=== PATIENT | female | born 1970 | race Two or more races ===

== ENCOUNTER 2017-01-19 22:48 | Emergency (ER) | payer OTHER ==
--- NOTE | 2017-02-05 16:41 | ER ---
ADMIT: 01/19/2017 RM/LOC: ER [facility] MR#: [id number] [address] [facility] [id number] TAMRA MURRY [address] [place] [address] Emergency Room Report SEX: F AGE: 46 : 1970 DATE: 01/19/2017 A 46-year-old fell onto a furniture with her shoulder, comes in complaining of arm pain, shoulder pain. See T-sheet for history and physical. X-rays revealed no fracture. She is given a sling, a prescription for Ultram. Encouraged to follow up with her primary doctor if not better in 2 or 3 days. DIAGNOSIS: Shoulder pain. Zachery Quintanilla MD/ ysabel JOB #: [id number] CC: Edgar Campbell MD, Attending Physician Rachael Bob, Family Physician
== END 2017-01-20 00:45 | disposition home or self-care (01) ==
LOC: ER 22:48
DX: M25.512 Pain in left shoulder (principal); E11.9 Type 2 diabetes mellitus without complications; Z79.84 Long term (current) use of oral hypoglycemic drugs; W08.XXXA Fall from other furniture, initial encounter